=== PATIENT | female | born 1995 | race Caucasian/White ===

== ENCOUNTER 2017-01-23 08:13 | Inpatient (IN) | payer BC, OTHER ==
[~2017-01-23] VITALS: Ht 175.3 cm; Wt 72.6 kg
[2017-01-23 15:41] LABS: RED BLOOD COUNT 4.46 M/UL (4.00-5.10)
[2017-01-25 03:18] LABS: HEMOGLOBIN 9.3 gm/dl (12.3-15.3)
[2017-01-26] MEDS ORDERED: COLACE 100MG C100 MG PO (09:08)
== END 2017-01-26 13:01 | disposition home or self-care (01) | DRG 775 ==
LOC: GENOP 08:13 → OB 15:08
PROVIDERS: Obstetrics & Gynecology; ADMIT Obstetrics & Gynecology
PROC: 10E0XZZ Delivery of Products of Conception, External Approach (ICD-10-PCS; principal; 2017-01-24)
PROC: 10H073Z Insertion of Monitoring Electrode into Products of Conception, Via Natural or Artificial Opening (ICD-10-PCS; 2017-01-24)
PROC: 10H07YZ Insertion of Other Device into Products of Conception, Via Natural or Artificial Opening (ICD-10-PCS; 2017-01-24)
DX: O99.824 Streptococcus B carrier state complicating childbirth (principal); Z37.0 Single live birth; Z3A.40 40 weeks gestation of pregnancy; O66.0 Obstructed labor due to shoulder dystocia; O75.89 Other specified complications of labor and delivery; Z91.040 Latex allergy status
CPT/HCPCS: 36415; 51702; 81001; 82800; 85014; 85018; 85025; J2210; J2274; J2405; J2590; J2795; J3010; J3430; J7120